=== PATIENT | male | born 1985 | race American Indian/Alaskan Native ===

== ENCOUNTER 2016-12-17 14:56 | Emergency (ER) | payer OTHER ==
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
[2016-12-17 20:23] VITALS: BP 114/71
== END 2016-12-17 20:20 | disposition home or self-care (01) ==
LOC: ED 14:56
DX: S13.4XXA Sprain of ligaments of cervical spine, initial encounter (principal); S16.1XXA Strain of muscle, fascia and tendon at neck level, initial encounter; R51 Headache; V49.49XA Driver injured in collision with other motor vehicles in traffic accident, initial encounter; Y93.9 Activity, unspecified; Y92.89 Other specified places as the place of occurrence of the external cause; Y99.9 Unspecified external cause status
CPT/HCPCS: 70450; 71020; 72070; 72100; 72125; 93005; 93010; 99284

== ENCOUNTER 2017-01-21 18:05 | Emergency (ER) | payer SELFPAY ==
[2017-01-21 18:26] VITALS: BP 126/81
[2017-01-21] MEDS ORDERED: NORCO 5/325 PO ONE (20:49)
[2017-01-21] MEDS ORDERED: BOOSTRIX IM ONE (20:49)
[2017-01-21] MEDS ORDERED: XYLOCAINE 1% 20 mL INFILTRATI ONE (20:50)
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
== END 2017-01-21 23:17 | disposition home or self-care (01) ==
LOC: ED 18:05
DX: S61.411A Laceration without foreign body of right hand, initial encounter (principal); W26.0XXA Contact with knife, initial encounter; Y93.89 Activity, other specified; Y99.8 Other external cause status; Y92.89 Other specified places as the place of occurrence of the external cause
CPT/HCPCS: 90471; 90715

== ENCOUNTER 2017-02-03 04:27 | Emergency (ER) | payer OTHER ==
[2017-02-03 05:18] VITALS: BP 117/93
[2017-02-03] MEDS ORDERED: PROVENTIL IH ONE ×3 (05:23→05:33)
[2017-02-03] MEDS ORDERED: ATROVENT IH ONE ×2 (05:23→05:29)
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
[2017-02-03] MEDS ORDERED: MAGNESIUM SULFATE 2GM/50ML 2 GM/50 ML BAG IV ONE (05:33)
--- NOTE | 2017-02-03 06:38 | XRay Report ---
FINAL REPORT PROCEDURE: XR CHEST ROUTINE 2V TECHNIQUE: PA and lateral chest radiographs were obtained. CPT 02525 HISTORY: wheezing, cough, immunocompromised COMPARISON: No prior studies are available for comparison. FINDINGS: Heart: Normal. Mediastinum/Vessels: Normal. Lungs/Pleural space: Normal. Bony thorax: No acute osseous abnormality. Other: IMPRESSION: Normal examination.
== END 2017-02-03 07:18 | disposition home or self-care (01) ==
LOC: ED 04:27
DX: J45.901 Unspecified asthma with (acute) exacerbation (principal)
CPT/HCPCS: 71020; 94640; 96365; 96375; 99284; J2930; J3475